=== PATIENT | female | born 1955 | race Two or more races ===

== ENCOUNTER 2020-03-16 22:01 | Inpatient (IN) | payer OTHER ==
[~2020-03-16] VITALS: Ht 160 cm; Wt 88.0 kg
[2020-03-17] VITALS (7 sets, daily range): BP systolic 105–120; BP diastolic 61–72
--- NOTE | 2020-03-17 01:00 | NUR ---
[employer] SUPERINTENDENTSPORTS DEVELOPMENT OFFICER NOTES RECEIVED PATIENT FROM [facility], ALERT AND ORIENTED X 3. ACCOMPANIED BY 2EMT'S ON A GURNEY. AMBULATORY, VERBALLY RESPONSIVE SPEAKS [place] AND LIMITED DANISH LANGUAGE. ABLE TO FOLLOW DIRECTIONS. BREATHING REGULAR AND UNLABORED ON ROOM AIR. RIGHT AC G18 IV LINE INTACT AND PATENT, FLUSHING WELL WITH NO BLEEDING OR S/S OF INFILTRATION NOTED. BODY ASSESSMENT DONE, SKIN INTACT CLEAN AND DRY. VITAL SIGNS AND BELONGINGS CHECKED BY JEWEL INSPECTOR. PATIENT DOESN'T HAVE AN ADVANCE DIRECTIVES AND WISHED TO BE FULL CODE. ATTACHED ON AIR EXPORT COORDINATOR WITH NSR AT 72bpm INITIAL READING. DENIES SUICIDAL IDEATION OR PAIN/DISCOMFORT AT THIS TIME. BED LOW AND LOCKED ON SEMI FOWLERS POSITION. CALL LIGHT IN REACH. WILL CONTINUE TO MONITOR.
[2020-03-17] MEDS ORDERED: MORPHINE SULFATE INJ 2 MG/ML DISP.SYRIN IV PRN (02:00)
[2020-03-17] MEDS ORDERED: ONDANSETRON HCL/PF 4 MG/2 ML VIAL IVP PRN (02:00)
[2020-03-17] MEDS ORDERED: DEXTROSE 50%-WATER 50 ML DISP.SYRIN IV PRN (02:00)
[2020-03-17] MEDS ORDERED: ACETAMINOPHEN 650 MG/SUPP.RECT RC PRN (02:00)
[2020-03-17] MEDS ORDERED: CYCL30DR EACHEYE (02:04)
[2020-03-17] MEDS ORDERED: IBUP-1955 PO (02:04)
[2020-03-17] MEDS ORDERED: OMEG1CAP55 PO (02:04)
[2020-03-17] MEDS ORDERED: METF-442 PO (02:04)
[2020-03-17] MEDS ORDERED: ASPI-1169 PO (02:04)
[2020-03-17] MEDS ORDERED: ATOR20TA PO (02:04)
[2020-03-17] MEDS ORDERED: OLME1TAB19 PO (02:04)
[2020-03-17] MEDS: PANTOPRAZOLE 40 MG VIAL IV SCH ×3 (02:15→20:19)
[2020-03-17] MEDS: IV D5/ 0.9% NACL 1,000 ML IV PRN ×2 (02:23→15:06)
--- NOTE | 2020-03-17 02:30 | NUR ---
[employer] MACHINE OPERATOR ASSISTANT NOTES VTE SCORE OF 2; DVT PUMPS ATTACHED. NO CHEMICAL DVT PROPHYLAXIS ORDERED D/T GI BLEED. WILL CONTINUE TO MONITOR.
[2020-03-17] MEDS: BLOOD SUGAR DIAGNOSTIC 1 EACH STRIP IN SCH ×4 (06:19→23:30)
[2020-03-17] MEDS: INSULIN REGULAR, HUMAN 100 UNIT/ML 3 ML VIAL SQ PRN ×4 (06:19→23:30)
--- NOTE | 2020-03-17 06:55 | NUR ---
POWER BRAKE OPERATOR CLOSING NOTES PATIENT IN BED ALERT AND ORIENTED X 4. AFEBRILE WITH NO S/S OF DISTRESS OBSERVED. RIGHT AC G18 IV LINE PATENT AND INFUSING WELL. MAINTAINED ON CARDIAC MONITORING WITH NSR AT 72bpm. NO COMPLAINTS OF PAIN/DISCOMFORT REPORTED AT THIS TIME. MAINTAINED NOTHING BY MOUTH. BED LOW AND LOCKED ON SEMI FOWLERS POSITION. CALL LIGHT IN REACH. WILL ENDORSE TO MORNING SHIFT FOR RENU.
[2020-03-17 06:56] LABS: BASOPHILS # (AUTO) 0.1 /CMM (0.0-0.2); BASOPHILS % (AUTO) 0.8 % (0.0-2.0); EOSINOPHILS % (AUTO) 2.4 % (0.0-6.0); HEMATOCRIT 34 % (33-45); HEMOGLOBIN 11.2 g/dL (11.5-14.8); LYMPHOCYTES % (AUTO) 28.8 % (20.0-44.0); MEAN CORPUSCULAR HGB CONC 33 g/dl (31.0-36.0); MEAN CORPUSCULAR VOLUME 88 fL (82-100); MONOCYTES # (AUTO) 0.8 /CMM (0.1-1.30); MONOCYTES % (AUTO) 6.1 % (2.0-12.0); NEUTROPHILS # (AUTO) 8.5 /CMM (1.8-8.9); NEUTROPHILS % (AUTO) 61.9 % (43.0-81.0); PLATELET COUNT (AUTO) 223 /CMM (150-450); RED BLOOD CELL COUNT(AUTO) 3.84 MIL/uL (4.0-5.2); WHITE BLOOD COUNT (AUTO) 13.8 K/uL (4.3-11.0)
[2020-03-17 07:16] LABS: ALBUMIN 3.3 g/dL (3.4-5.0); BILIRUBIN,TOTAL 0.5 mg/dL (0.2-1.0); CALCIUM, SERUM 8.1 mg/dL (8.5-10.1); CREATININE 0.6 mg/dL (0.6-1.3); MAGNESIUM 1.8 mg/dL (1.8-2.4); PHOSPHORUS 2.7 mg/dL (2.5-4.9); POTASSIUM 3.4 mmol/L (3.5-5.1); TOTAL PROTEIN, SERUM 5.9 g/dL (6.4-8.2)
[2020-03-17 07:22] LABS: THYROID STIMULATING HORMONE 3.178 uIU/mL (0.358-3.74)
--- NOTE | 2020-03-17 07:30 | NUR ---
0730 Opening Notes: Report received from night RN. Patient alert, awake and oriented x3. Patient on telemetry with normal sinus rhythm. No s/s of distress or discomfort noted, no c/o pain. VS WNL. Patient with orders for NPO. Patient assisted with ADLs, kept clean and dry. Linens changed. Patient able to turn and reposition herself, tolerated well. Fall precautions observed. Reminded patient to use call light for assistance. Call light within reach.
[2020-03-17] MEDS: POTASSIUM CL. PREMIX PERIPHER. 50 ML IV SCH ×2 (10:41→11:55)
--- NOTE | 2020-03-17 11:00 | NUR ---
Tele/RN - MD Order Dr. Brooks with order to d/c tele monitoring and transfer to med-surg with same orders.
--- NOTE | 2020-03-17 14:30 | NUR ---
MS/RN - Notes Patient had a large bowel movement, dark and tarry stool noted, specimen sent to lab for stool OB.
--- NOTE | 2020-03-17 17:50 | NUR ---
MS/RN - Consent Daughter Dwaine Buckner called and updated on patient's condition, made aware that pt is scheduled for EGD tomorrow and we need a consent. Daughter Dwaine Buckner consented for EGD. Patient made aware and agreed.
--- NOTE | 2020-03-17 18:27 | NUR ---
Closing Notes: Patient in bed alert, and awake. No c/o pain , no SOB, no s/s of distress or discomfort. Assisted with ADLs. Patient able to turn and repositioned herself. Tolerated treatment and care well. Patient spoke with daughter regarding ordered procedure tomorrow. Patient continuously monitored. Needs anticipated and attended. Fall precautions observed. bed locked and in lowest position. Call light within easy reach. VS WNL.
--- NOTE | 2020-03-17 19:40 | NUR ---
MS RN OPENING NOTES RECEIVED PATIENT IN BED, ALERT AND ORIENTED X 4. AMBULATORY, VERBALLY RESPONSIVE AND ABLE TO FOLLOW DIRECTIONS. BREATHING REGULAR AND UNLABORED ON ROOM AIR. RIGHT AC G18 IV LINE INTACT AND PATENT, INFUSING WELL WITH NO BLEEDING OR S/S OF INFILTRATION NOTED. DENIES SUICIDAL IDEATION OR PAIN/DISCOMFORT AT THIS TIME. BED LOW AND LOCKED ON SEMI FOWLERS POSITION. CALL LIGHT IN REACH. WILL CONTINUE TO MONITOR.
[2020-03-17 19:41] LABS: OCCULT BLOOD STOOL POSITIVE (NEGATIVE)
--- NOTE | 2020-03-17 22:00 | NUR ---
MS RN NOTES ADVISED ON NOTHING BY MOUTH EXCEPT MEDS STARTING MIDNIGHT. VERBALIZED UNDERSTANDING
--- NOTE | 2020-03-18 | NUR ---
MS RN NOTES BS 185mg/dl, INSULIN COVERAGE NOT GIVEN. ON NPO FOR DIAGNOSIS. WILL CONTINUE TO MONITOR.
--- NOTE | 2020-03-18 03:15 | NUR ---
MS RN NOTES COMPLAINED OF 7/10 NECK PAIN, MORPHINE 2MG GIVEN VIA IVP. NON-PHARMACOLOGICAL INTERVENTIONS PROVIDED. VITAL SIGNS WNL. WILL CONTINUE TO MONITOR.
[2020-03-18] MEDS: IV D5/ 0.9% NACL 1,000 ML IV PRN (05:02)
[2020-03-18] MEDS: INSULIN REGULAR, HUMAN 100 UNIT/ML 3 ML VIAL SQ PRN ×3 (05:34→17:26)
[2020-03-18] MEDS: BLOOD SUGAR DIAGNOSTIC 1 EACH STRIP IN SCH ×3 (05:34→17:23)
--- NOTE | 2020-03-18 06:50 | NUR ---
MS RN CLOSING NOTES PATIENT IN BED ALERT AND ORIENTED X 4. AFEBRILE WITH NO S/S OF DISTRESS OBSERVED. RIGHT AC G18 IV LINE PATENT AND INFUSING WELL. NO COMPLAINTS OF PAIN/DISCOMFORT REPORTED AT THIS TIME. MAINTAINED NOTHING BY MOUTH. BED LOW AND LOCKED ON SEMI FOWLERS POSITION. CALL LIGHT IN REACH. WILL ENDORSE TO MORNING SHIFT FOR RENU.
--- NOTE | 2020-03-18 07:45 | NUR ---
MS RN OPENING NOTES RECEIVED PATIENT AWAKE RESTING IN BED, A/O X4, AMBULATORY, WITH BRP, IV TO RT AC #18 G, RUNNING D5NS @70 ML/HR. PT IS NPO, ORDERS FOR EGD CONSENT SIGNED AND ON FILE. SKIN INTACT. ON RA, NO C/O SOB, NO ACUTE RESPIRATORY DISTRESS NOTED. NO C/O PAIN AT THIS TIME. BED AT LOWEST POSITION LOCKED WITH SIDE RAILS UP X 2. CALL LIGHT WITHIN REACH. WILL CONTINUE TO MONITOR PT THROUGHOUT SHIFT.
[2020-03-18 08:00] VITALS: BP 114/73
[2020-03-18] MEDS: PANTOPRAZOLE 40 MG VIAL IV SCH (08:32)
--- NOTE | 2020-03-18 09:45 | NUR ---
MS RN NOTES PT LEFT VIA GURNEY FOR EGD IN STABLE CONDITION, CONSENT SIGNED AND ON FILE.
[2020-03-18] MEDS ORDERED: ANESTHESIA TRAY IN PYXIS 1 EA TRAY MC ONE (09:53)
[2020-03-18] MEDS ORDERED: FAMOTIDINE/PF INJ 20 MG/2 ML VIAL IV ONE (10:09)
[2020-03-18] MEDS ORDERED: PANT40TA2 PO (10:56)
[2020-03-18 11:15] VITALS: BP 137/78
--- NOTE | 2020-03-18 11:15 | NUR ---
MS RN NOTE PT RETURNED TO MS3; ROOM 312-2 FROM EGD PROCEDURE VIA GURNEY IN STABLE CONDITION. ON RA; O2 SAT 97% BP: 137/78; HR: 68; R: 18; TEMP: 97.4. PT TO RESUME CLEAR LIQUIDS DIET AND RESUME PREVIOUS MEDS. PT RESTING COMFORTABLY IN BED. WILL CONTINUE TO MONITOR
[2020-03-18 16:00] VITALS: BP 122/70
--- NOTE | 2020-03-18 18:16 | NUR ---
MS POLICE SERGEANT NOTES RECEIVED ORDER FOR D/C HOME / SELF CARE FROM [facility]. PT IN STABLE CONDITION. DISCHARGE EDUCATION REVIEWED WITH PATIENT; SHE VERBALIZED UNDERSTANDING. Addendum: 03/18/20 at 1828 by CIARAN CASTELLANOS RN POLICE SERGEANT / CLOSING NOTES RECEIVED ORDER FOR D/C HOME /SELF CARE FROM [facility], PATIENT AND FAMILY NOTIFED OF DISCHARGE HOME. PATIENT IS IN STABLE CONDITION. D/C INSTRUCTION AND EDUCATION PROVIDED AND REVIEWED WITH PATIENT. INSTRUCTED PER DR. TAPIA NO NSAID'S, PROTONIX 40 MG BID FOR 2-3 MONTHS. F/U WITH PCP. PT VERBALIZED UNDERSTANDING. REVIEWED PATIENT BELONGING WITH PATIENT. SKIN CHECKED AND INTACT, NO PHOTOS TAKEN. HOME MEDICATIONS PICKED UP FROM PHARMACY AND GIVEN TO PATIENT. PT AWAITING FAMILY FOR TELEVISION CAMERA OPERATOR, RESTING COMFORTABLY IN BED. ON RA, WITH NO ACUTE DISTRESS NOTED. NO C/O PAIN. IV TO RT AC G#[address] PATENT AND INTACT; SL. AWAITING FAMILY ARRIVAL TO DC IV. BED AT LOWEST POSITION AND LOCKED, SIDE RAILS UP X2 AND CALL LIGHT WITH IN REACH. WILL ENDORSE TO TRACK RIDER, PT WAITING FOR FAMILY TELEVISION CAMERA OPERATOR
--- NOTE | 2020-03-18 19:38 | NUR ---
MS RN NOTES RECEIVED PATIENT AWAKE ALERT ORIENTED X4, SITTING ON BED. SAFETY MEASURES IN PLACE, DENIES ANY PAIN OR DISCOMFORT. CALL LIGHT WITH IN EASY REACH. PERIPHERAL IV ACCESS ON HER RIGHT AC G#18 SL, WILL REMOVE PRIOR TO DISCHARGE. ALL NEEDS ANTICIPATED. WILL CONTINUE TO MONITOR. AWAITING FOR FAMILY MEMBERS TO SPECIAL FORCES OFFICER. PATIENT FOR DISCHARGE TONIGHT.
--- NOTE | 2020-03-18 20:05 | NUR ---
RN NOTES PATIENT LEFT THE UNIT IN STABLE CONDITION. PICKED UP BY . CHARGE NURSE AND EMERGENCY SERVICES PROFESSIONAL AWARE OF DISCHARGE. ALL NEEDS ATTENDED.
[2020-03-19] MEDS ORDERED: EPINEPHRINE (1:10,000) SYRINGE 1 MG/10 ML DISP.SYRIN ONE (14:26)
== END 2020-03-18 20:00 | disposition home or self-care (01) | DRG 241 ==
LOC: EDSEX → TELE 03-17 00:37 → MED 03-17 11:15
PROC: 0W3P8ZZ Control Bleeding in Gastrointestinal Tract, Via Natural or Artificial Opening Endoscopic (ICD-10-PCS; principal; 2020-03-18)
DX: K25.4 Chronic or unspecified gastric ulcer with hemorrhage (principal); I10 Essential (primary) hypertension; D62 Acute posthemorrhagic anemia; E87.6 Hypokalemia; E11.65 Type 2 diabetes mellitus with hyperglycemia; Z79.1 Long term (current) use of non-steroidal anti-inflammatories (NSAID); E66.9 Obesity, unspecified; E78.5 Hyperlipidemia, unspecified
CPT/HCPCS: 36415; 80053-TC; 80061-TC; 82272-TC; 82962-TC; 83540-TC; 83735-TC; 84100-TC; 84443-TC; 85025-TC; 87081-TC; 88305-TC; 88313-TC; 88342; C9113; G0378; J0171; J1815; J2270; J2405; J2704; J2765; J3480; J3490; J7042